=== PATIENT | female | born 1955 | race Caucasian/White ===

== ENCOUNTER 2017-01-08 07:48 | Emergency (ER) | payer MEDICARE, OTHER | END 2017-01-08 11:10 | disposition home or self-care (01) | LOC: ER 07:48 | DX: I82.432 Acute embolism and thrombosis of left popliteal vein (principal); F17.210 Nicotine dependence, cigarettes, uncomplicated; Z90.710 Acquired absence of both cervix and uterus; Z98.890 Other specified postprocedural states; Z79.899 Other long term (current) drug therapy | CPT/HCPCS: 36415 ==

== ENCOUNTER 2017-01-09 13:46 | Emergency (ER) | payer MEDICARE, OTHER | END 2017-01-09 15:53 | disposition home or self-care (01) | LOC: ER 13:46 | DX: I26.99 Other pulmonary embolism without acute cor pulmonale (principal); F17.210 Nicotine dependence, cigarettes, uncomplicated; Z90.710 Acquired absence of both cervix and uterus; Z98.890 Other specified postprocedural states; Z79.899 Other long term (current) drug therapy | CPT/HCPCS: 96374; Q9967 ==